=== PATIENT | male | born 1955 | race Caucasian/White ===

== ENCOUNTER 2016-08-08 08:07 | Day surgery (SDC) | payer OTHER ==
[~2016-08-08] VITALS: Ht 167.6 cm; Wt 90.3 kg
[~2016-08-08 08:07] MED LIST: ALLO300T2 PO; BENZ100C8 PO; CYCL10TA9 PO; GABA600T2 PO; GUAI120L57 PO; LORA10CA PO; LOSA25TA21 PO; Lactated Ringer's 1,000 ML IV ONE; OMEP20TA24 PO; TAMS0.4C98 PO; VIC5 PO
[2016-08-08] MEDS ORDERED: Propofol 10,000 mCg/mL 20 mL Inj ONE (08:08)
[2016-08-08] MEDS ORDERED: fentaNYL-PF 50 mCg/mL 2 mL Inj ONE (08:08)
[2016-08-08 08:27] VITALS: BP 134/78; PULSE 92; RESP 14; O2SAT 96
--- NOTE | 2016-08-08 08:40 | PCM.HPANE ---
Patient Data Date of Service: Aug 08, 2016 (0845) Surgeon Admitting Provider: Attending Provider:Tyrese Anders MD Primary Care Physician:Eitan Granda MD Other Provider:Joel Brizuela Anesthesia Reason for Visit Abnomral Liver Function Test Ht/WT & BMI Height (Feet): 5 Height (Inches): 6 Weight (Kilograms): 90.26 Body Mass Index 31.00 Allergies Coded Allergies: OSMEL Inhibitors (Verified Adverse Reaction, Mild, cough, 08/06/16) Past Anesthesia History Anesthesia History: Denies:: Anesthesia Reactions, Fam Anesthesia Reaction, Fam Malignant Hypertherm, Malignant Hyperthermia Diabetes History Hx Diabetes?: No MRSA MRSA: No Medications Reported Medications Tamsulosin (Flomax)0.4 Mg Capsule0.8 Mg PO DAILY Ref 0 08/06/16 Omeprazole Magnesium (Prilosec Otc)20 Mg Tablet.dr20 Mg PO DAILY #1 PKG Ref 0 08/06/16 Losartan Potassium 25 Mg Eacxpt31 Mg PO DAILY 08/06/16 Loratadine (Claritin)10 Mg Fwbwqta08 Mg PO DAILY Ref 0 08/06/16 Gabapentin 600 Mg Ohzzys554 Mg PO TID Ref 0 08/06/16 Cyclobenzaprine 10 Mg Hskuwr05 Mg PO HS PRN Spasm Ref 0 08/06/16 Benzonatate 100 Mg Bbvbvrk606 Mg PO TID 08/06/16 Allopurinol 300 Mg Cjsjhc977 Mg PO DAILY Ref 0 08/06/16 Hydrocod/APAP-Expunged, Do Not Renew! (Vicodin-Expunged Drug, Do Not Renew)1 Tab Tab1 Tab PO PRN Ref 0 08/02/08 Discontinued Reported Medications Guaifenesin/Codeine Phosphate (Codeine-Guaifen 10-100 mg/5 ml)120 Ml Wunxwf81 Ml PO 08/06/16 History HEENT History: Denies:: Hearing Problem Teeth Condition: Missing Teeth Hx of Heart Problems?: Yes Cardiovascular History: Positive for:: Hypertension Hx of Respiratory Problem?: No Neurological History: Denies:: CVA Hx of GI Problems?: Yes Gastrointestinal History: Positive for:: Liver Disease (Abnormal liver tests) Other GI Pertinent History: kidney stones Musculoskeletal History: Positive for:: Joint Replacement (rt hip) Psycho Social History: Positive for:: Hx Depression Hx Surgeries?: Yes (hip replacement rt,catatact bilatateral, kidney stones) Hx Any Other Health Problems?: Yes Hx Diabetes: No Hx Alcohol Use: YesHx Substance Use: NoHave You Smoked inLast 12 mo: No Stop/Bang Treated for Sleep Apnea?: No Do You Have a CPAP Machine?: No S-Snoring: Do You Snore Loudly: Yes T-Tired: feel tired, fatigued: No O-Obsered: Observed not breath: Yes P-Blood Pressure: treated: Yes B- Body Mass Index > 35 kg/m2: No A- Age over 50: Yes N- Neck Large Circumference: No G- Gender Male: Yes ADAM Total Score: 5 ADAM Risk Assessment: High Risk, =/>3 Yes Risk Assessment Category Category 1A: Patient has history of documented sleep apnea, and HAS NOT received any narcotic, sedative or anesthesia administration during this stay. Category 1B: Patient has history of documented sleep apnea, and HAS received any narcotic , sedative or anesthesia administration during this stay Category 2: Patient has SUSPECTED Obstructive Sleep Apnea, and HAS received any narcotic , sedative or anesthesia administration during this stay. Category 3: Patient has SUSPECTED Obstructive Sleep Apnea and HAS NOT received narcotic, sedative or anesthesia administration during this stay. Category 4: Outpatient in Procedural Areas with known sleep apnea or who screen positive for High Risk via the STOP/BANG questionnaire. Exam Exam Vital Signs Vital Signs Date Time Temp Pulse Resp B/P Pulse Ox O2 Delivery O2 Flow Rate FiO2 08/08/16 08:27 37.1 92 14 134/78 96 Room Air General Appearance: Alert, Oriented X3, Cooperative HEENT/AIRWAY: MP 1 Lungs: Clear to Auscultation Heart: Exam Unremarkable Meds/Labs/Diagnostics Admission Meds Current Medications Lactated Ringer's (Lr) 1,000 ml @ 10 mls/hr Q24H ONCE IV Last administered on 08/08/16t 08:30; Start 08/08/16 at 06:00; Stop 08/09/16 at 05:59 Plan Impression Patient chart reviewed, patient interviewed and anesthestic plan with risks, benefits, and alternatives discussed, and informed consent obtained. NPO Status: >8HRS ASA Physical Status: ASA2 Mod Systemic Disease Anesthetic Plan: GA Bene/Risks/Altern/Consents: Yes HP Complete Prior to Induction: Yes Owen Lane MD Aug 08, 2016 08:40
[2016-08-08] MEDS ORDERED: Lactated Ringer's 1,000 ML IV SCH (08:41)
[2016-08-08] MEDS ORDERED: MetoCLOpramide 5 mg/mL 2 mL Inj IVPUSH PRN (08:45)
[2016-08-08] MEDS ORDERED: Ondansetron 2 mg/mL 2 mL Inj IVPUSH PRN (08:45)
--- NOTE | 2016-08-08 08:58 | PCM.ENDEGD ---
EGD Date of Service: Aug 08, 2016 Physician Tyrese Anders MD Pre Procedure Diagnosis: Varices screening Post Procedure Dx & Findings: esophageal varices portal hypertensive gastropathy Procedure Esophagogastroduodenoscopy PROCEDURE IN DETAIL: After proper sedation, Olympus video endoscope was inserted into patient's mouth and esophagus was successfully intubated. Scope introduced esophagus. Esophagus showed normal shiny whitish mucosa consistent with squamous cell component. Z line was intact at 40 cm cm from the incisors. However starting in the midesophagus, we started seeing esophageal varices. It went to the Z line. At the Z line, there were 4 columns of grade 2 and one column of grade 1 varices. No stigmata noted. Scope advanced further to the stomach. There was also evidence of snakeskin pattern mucosa from cardia fundus body consistent with portal hypertensive gastropathy. Stomach showed normal shiny mucosa with normal appearing rugae folds without any ulcer mass erosion. Cardia fundus body antrum pylorus were all visualized. Retroflexion was done. Stomach was easily inflated and deflatable using air. Scope further events to the distal duodenum. Duodenum revealed normal villous structures with normal appearing folds without any mass ulcer erosion. Impression Esophagus varices Portal hypertensive gastropathy Recommendation Start propranolol. He was informed to not to take it if pulse less than 55 systolic blood pressure less than 90 or starts having dizziness or lightheadedness. Presedation Assessment Risks and Benefits Informed consent was obtained from the patient after all risks and benefits including but not limited to drug reaction, infection, pain, bleeding, perforation, as well as alternatives were discussed. Patient monitoring Continuous pulse oximetry, cardiac monitoring, blood pressure monitoring, IV access, and oxygen at 2L per nasal cannula. Complications There were no periprocedural complications identified. Post Procedure Plan Post Procedure Recommendations 1. Restrict activities today. 2. Resume normal activities in the morning. 3. Resume medications. 4. GERD behavioral modification: - Avoid fatty, acidic, spicy, large meals - Do not lie down after meals - Do not eat or drink anything for at least 2 1/2 hours before going to bed at night - Discontinue tobacco and alcohol - Decrease or avoid caffeine - Avoid chocolate and mints - Decrease weight - Avoid aspirin and non steroidal anti-inflammatory agents (NSAID) such as Aleve, Advil, Mobic, Naproxen, Ibuprofen, etc 5. Add proton pump inhibitor. Take 30 minutes before 1st meal of the day. 6. Patient informed of normal post procedure side effects as bloating, drowsiness, blood streaking in the stool 7. If gastric biopsy reveal H.pylori, continue with appropriate treatment 8. If small bowel biopsy reveals celiac, continue with appropriate treatment 9. Please don't hesitate to call me with any questions Tyrese Anders MD Aug 08, 2016 08:58
[2016-08-08 09:17] VITALS: BP 106/67; PULSE 84; RESP 14; O2SAT 91
--- NOTE | 2016-08-08 09:18 | PCM.ENDCOL ---
Colonoscopy Date of Service: Aug 08, 2016 Physician Tyrese Anders MD Pre Procedure Diagnosis: Screening Post Procedure Dx & Findings: Polyp diverticuli and hemorrhoids Procedure Colonoscopy PROCEDURE IN DETAIL: Prep adequate Withdrawal time 13 minutes After unremarkable rectal examination the Olympus video colonoscope was inserted patient's anal canal and was advanced to cecum. Landmarks were identified including the ileocecal valve and appendiceal orifice. Scope was withdrawn systematically. Visualized colonic mucosa showed healthy shiny mucosa with normal healthy-appearing vasculature. In the cecum extending into the ileocecal valve, there was a 2 cm x 4 cm large polyp. Biopsy obtained. In the transverse colon, there were total of 3 polyps. These were 2-3 mm in size which were all removed completely using cold snare. In the ascending colon, there was a 1 cm AVM. No bleeding noted. In the sigmoid colon, there were several small to medium diverticula. In the rectum retroflexion was done which showed hemorrhoids. Anal canal was inspected carefully on the way out and hemorrhoids noted. There was also a column of rectal varices. Impression Polyp 2 x 4 cm. Was not resected. Patient has portal hypertensive gastropathy esophageal varices rectal varices and platelets. Polyp 3 status post complete removal Diverticuli Hemorrhoids Recommendation Please go to the [facility] for high risk polypectomy. Diverticular diet Follow up in GI clinic in couple months. Presedation Assessment Risks and Benefits Informed consent was obtained from the patient after all risks and benefits including but not limited to drug reaction, infection, pain, bleeding, perforation, as well as alternatives were discussed. Patient monitoring Continuous pulse oximetry, cardiac monitoring, blood pressure monitoring, IV access, and oxygen at 2L per nasal cannula. Complications There were no periprocedural complications identified. Post Procedure Plan Post Procedure Recommendations 1. Restrict activities today. 2. Resume normal activities in the morning. 3. Resume medications. 4. Patient informed of normal post procedure side effects as bloating, drowsiness, blood streaking in the stool. 5. average risk CRCS. If colon polyps come back as: -Hyperplastic- can repeat colonoscopy in 10 years -Tubular adenoma- repeat colonoscopy in 5 years -Tubulovillous/villous adenoma- repeat colonoscopy in 3 years -If any dysplasia- return to clinic as soon as possible 6. Please don't hesitate to call me with any questions. Tyrese Anders MD Aug 08, 2016 09:18
--- NOTE | 2016-08-08 09:19 | PCM.ANEP1 ---
Post Anesthesia Phase 1 PACU Phase 1 Assessment Date of Service: Aug 08, 2016 Vital Signs 93%, 16, 85, 36.5, 106/69 Vital Signs Date Time Temp Pulse Resp B/P Pulse Ox O2 Delivery O2 Flow Rate FiO2 08/08/16 08:27 37.1 92 14 134/78 96 Room Air Anesthetic Administered: GA Level of Alertness: Awake, talking PAEZ's with Equal Strength: Yes Pain: No Nausea or Vomiting: No Oxygen Delivery: Room Air Lungs: Clear to Auscultation Dermatome Level: Full Sensation Summary uneventful sedation Owen Lane MD Aug 08, 2016 09:19
--- NOTE | 2016-08-08 09:19 | PCM.ANEP2 ---
Post Anesthesia Evaluation ASA/CMS Post Anesthesia VS in Patient's Normal Range?: Yes Resp Stable; Airway Patent?: Yes CV Function & Hydration Stable: Yes Mental Status Recovered?: Yes Pain control Satisfactory?: Yes N/V Control Satisfactory?: Yes Owen Lane MD Aug 08, 2016 09:19
[2016-08-08 09:27] VITALS: BP 144/78; PULSE 84; RESP 16; O2SAT 94
[2016-08-08 09:37] VITALS: BP 151/76; PULSE 89; RESP 16; O2SAT 93
[2016-08-08 09:47] VITALS: BP 155/75; PULSE 84; RESP 16; O2SAT 98
--- NOTE | 2016-08-09 11:43 | PATH ---
SURGICAL PATHOLOGY Attending Physician:Tyrese Anders M.D. CASE STATUS: Signed Out PATIENT NAME: WILMAR RIVERA PID: [id number] : 1955 DATE COLLECTED:08/08/2016 17:48 SPECIMEN: 1: Colon, Biopsy 2: Colon, Biopsy CLINICAL HISTORY: ABNORMAL LIVER TESTS 1). CECAL POLYP BIOPSY 2). TRANSVERSE COLON POLYPS X2 FINAL DIAGNOSIS: 1.CECAL POLYP BIOPSY: TUBULAR ADENOMA. 2.TRANSVERSE COLON POLYPS: TUBULAR ADENOMA INVOLVING SINGLE BIOPSY FRAGMENT. SESSILE SERRATED ADENOMA INVOLVING TWO BIOPSY FRAGMENTS. ICD10 CODE D12.0 GROSS DESCRIPTION: The specimen is received in two formalin filled containers labeled with the patient's name. 1). The specimen is sublabeled "cecal polyp" and consists of a 0.3 x 0.2 x 0.2 CM portion of tissue which is entirely submitted in cassette 1A. 2). The specimen is sublabeled "transverse colon polyps" and consists of 3 portions of tissue which aggregate to 0.4 x 0.3 x 0.3 CM. The specimen is entirely submitted in cassette 2A. 08/08/2016 [facility] MICRO DESCRIPTION: See diagnosis. ICD-9 CODES: CPT CODES: 1: 49065 2: 59571 Electronically Signed Out Bret Baker MD [facility] [address], [place] [address] Technical component performed at [facility], [address] [place] [address] Ave[address], [place], [address]
== END 2016-08-08 23:59 | disposition home or self-care (01) ==
LOC: END 08:07
PROVIDERS: ATTEND Internal Medicine
DX: Z12.11 Encounter for screening for malignant neoplasm of colon (principal); D12.0 Benign neoplasm of cecum; D12.3 Benign neoplasm of transverse colon; K57.30 Diverticulosis of large intestine without perforation or abscess without bleeding; K64.8 Other hemorrhoids; K76.6 Portal hypertension; K31.89 Other diseases of stomach and duodenum; I85.10 Secondary esophageal varices without bleeding; N40.1 Benign prostatic hyperplasia with lower urinary tract symptoms; R39.15 Urgency of urination; R35.0 Frequency of micturition; R33.9 Retention of urine, unspecified; I10 Essential (primary) hypertension; F32.9 Major depressive disorder, single episode, unspecified

== ENCOUNTER → 2016-11-01 | Day surgery (SDC) | payer OTHER ==
--- NOTE | 2016-10-31 13:22 | PCM.HPANE ---
Patient Data Surgeon Admitting Provider: Attending Provider:Tyrese Anders MD Primary Care Physician:Eitan Granda MD Other Provider:[facility] Anesthesia Reason for Visit Cirrhosis Of Liver W/Ascites Ht/WT & BMI Body Mass Index Allergies Coded Allergies: OSMEL Inhibitors (Verified Adverse Reaction, Mild, cough, 08/06/16) Past Anesthesia History Anesthesia History: Denies:: Abnormal Airway, Anesthesia Reactions, Difficult Intubation, Fam Anesthesia Reaction, Fam Malignant Hypertherm, Malignant Hyperthermia Diabetes History Hx Diabetes?: No MRSA MRSA: No Medications Reported Medications Tamsulosin (Flomax)0.4 Mg Capsule0.4 Mg PO DAILY Ref 0 10/31/16 Sertraline HCl (Sertraline)25 Mg Ngwbls74 Mg PO DAILY 30 Days Ref 0 10/31/16 Omeprazole Magnesium (Prilosec Otc)20 Mg Tablet.dr20 Mg PO DAILY #1 PKG Ref 0 10/31/16 Losartan Potassium 25 Mg Rbgjih99 Mg PO DAILY 10/31/16 Ferrous Sulfate (Iron)325 Mg Capsule.er325 Mg PO DAILY 10/31/16 Gabapentin 600 Mg Zvqrwl722 Mg PO TID Ref 0 10/31/16 Cyclobenzaprine 10 Mg Cuouht96 Mg PO BID PRN Spasm 10/31/16 Benzonatate 100 Mg Rgqxmgj008 Mg PO TID 10/31/16 Allopurinol 300 Mg Fqwkat823 Mg PO DAILY Ref 0 10/31/16 Discontinued Reported Medications Loratadine 10 Mg Dwsdrmk66 Mg PO DAILY 10/31/16 Guaifenesin/Codeine Phosphate (Codeine-Guaifen 10-100 mg/5 ml)120 Ml Ajnmof979 Ml PO 10/31/16 Tamsulosin (Flomax)0.4 Mg Capsule0.8 Mg PO DAILY Ref 0 08/06/16 Omeprazole Magnesium (Prilosec Otc)20 Mg Tablet.dr20 Mg PO DAILY #1 PKG Ref 0 08/06/16 Losartan Potassium 25 Mg Zcthob39 Mg PO DAILY 08/06/16 Loratadine (Claritin)10 Mg Lnmypua23 Mg PO DAILY Ref 0 08/06/16 Gabapentin 600 Mg Plbmmz466 Mg PO TID Ref 0 08/06/16 Cyclobenzaprine 10 Mg Cmopuw38 Mg PO HS PRN Spasm Ref 0 08/06/16 Benzonatate 100 Mg Nztvrfh162 Mg PO TID 08/06/16 Allopurinol 300 Mg Prtmpr098 Mg PO DAILY Ref 0 08/06/16 Hydrocod/APAP-Expunged, Do Not Renew! (Vicodin-Expunged Drug, Do Not Renew)1 Tab Tab1 Tab PO PRN Ref 0 08/02/08 History History of ENT Problems?: No HEENT History: Denies:: Abnormal Airway Cataracts Difficult Intubation Dysphagia Glaucoma Hearing Problem Sinus Problem TMJ Denture Type: None Teeth Condition: Within Normal Limits Hx of Heart Problems?: Yes Cardiovascular History: Positive for:: Hypertension Denies:: AICD Abdominal Aortic Aneurism Atrial Fibrillation Cardiac Surgery Chest Pain Congestive Heart Failure Coronary Artery Disease Edema Heart Murmur Irregular Heartbeat Pacemaker Peripheral Vascular Rheumatic Fever Thrombophlebitis Valvular Heart Disease Hx of Respiratory Problem?: No Respiratory History: Denies:: Asthma COPD Chest Surgery Cough Dyspnea Emphysema Hemoptysis Oxygen Administration Pneumonia Pulmonary Embolism Tuberculosis Use of C-PAP Machine Use of Inhalers / NEBS Hx Neurologic Problems?: No Neurological History: Denies:: Alzheimer's Disease CVA Dementia Dizziness Headaches Multiple Sclerosis Parkinson's Disease Peripheral Neuropathy Seizures TIA Hx of GI Problems?: Yes Gastrointestinal History: Denies:: Cirrhosis Diverticulitis Gall Bladder Disease Gastroesphageal Reflux Gastrointestinal Bleeding Heartburn Hepatitis Hiatal Hernia Liver Disease Rectal Bleeding Hx of Problems?: No Genitourinary History: Denies:: HX of Hemodialysis Kidney Stones Urinary Tract Infection Male Hx: Denies:: Prostate Problems Scrotal Mass Testicular Surgery Skin History: Denies:: History Skin Disorders? Pressure Ulcers Hx Musculoskeletal Problems?: Yes Musculoskeletal History: Positive for:: Joint Replacement (rt hip) Denies:: Back Injury Degenerative Joint Fibromyalgia Musculoskeletal Trauma Myasthenia Gravis Osteoarthritis Rheumatoid Arthritis Systemic Lupus Hx of Psycho/Social Problems?: Yes Psycho Social History: Positive for:: Hx Depression Denies:: Anxiety Bipolar Disorder Suicide Attempt Hx Surgeries?: Yes (hip replacement rt,catatact bilatateral, kidney stones) Hx Any Other Health Problems?: Yes Other History: Denies:: Cancer Endocrine Disease Hospitalization Thyroid Disease History Blood Transfusions: Denies:: Accept Blood Products? Blood Transfuse Reaction Blood Transfusions Hx Diabetes: No Hx Alcohol Use: YesHx Substance Use: NoHave You Smoked inLast 12 mo: No Stop/Bang Risk Assessment Category Category 1A: Patient has history of documented sleep apnea, and HAS NOT received any narcotic, sedative or anesthesia administration during this stay. Category 1B: Patient has history of documented sleep apnea, and HAS received any narcotic , sedative or anesthesia administration during this stay Category 2: Patient has SUSPECTED Obstructive Sleep Apnea, and HAS received any narcotic , sedative or anesthesia administration during this stay. Category 3: Patient has SUSPECTED Obstructive Sleep Apnea and HAS NOT received narcotic, sedative or anesthesia administration during this stay. Category 4: Outpatient in Procedural Areas with known sleep apnea or who screen positive for High Risk via the STOP/BANG questionnaire. Exam Exam General Appearance: Alert, Oriented X3, Cooperative, Moderate Distress HEENT/AIRWAY: MP 2 Lungs: Clear to Auscultation Heart: Exam Unremarkable Plan Impression Patient chart reviewed, patient interviewed and anesthestic plan with risks, benefits, and alternatives discussed, and informed consent obtained. ASA Physical Status: ASA2 Mod Systemic Disease Anesthetic Plan: MAC Bene/Risks/Altern/Consents: Yes HP Complete Prior to Induction: Yes Ari Olivera MD Oct 31, 2016 13:22
[~2016-11-01] VITALS: Ht 167.6 cm; Wt 88.0 kg
[~2016-11-01] MED LIST changes: +FERR325C PO; -LORA10CA PO; +LORA10CA9 PO; +Lactated Ringer's 1,000 ML IV SCH; +MetoCLOpramide 5 mg/mL 2 mL Inj IVPUSH PRN; +Ondansetron 2 mg/mL 2 mL Inj IVPUSH PRN; +Propofol 10,000 mCg/mL 20 mL Inj ONE; +SERT25TA6 PO; -VIC5 PO; +fentaNYL-PF 50 mCg/mL 2 mL Inj ONE
[2016-11-01 09:40] VITALS: BP 148/72; PULSE 75; RESP 16; O2SAT 98
[2016-11-01 10:18] VITALS: BP 142/81; PULSE 80; RESP 17; O2SAT 93
--- NOTE | 2016-11-01 10:22 | PCM.ENDEGD ---
EGD Date of Service: Nov 01, 2016 Physician Tyrese Anders MD Pre Procedure Diagnosis: esophageal varix Post Procedure Dx & Findings: grade 1 esophageal varix. Procedure Esophagogastroduodenoscopy PROCEDURE IN DETAIL: After proper sedation, Olympus video endoscope was inserted into patient's mouth and esophagus was successfully intubated. Scope introduced esophagus. Esophagus showed normal shiny whitish mucosa consistent with squamous cell component. Z line was at 45 cm from the incisors. There were 3 columns of esophageal varices. On insufflation they all flattened out. Grade 1 varices of 3 columns. No stigmata noted. Scope further advanced to the stomach. Gastric mucosa showed portal hypertensive gastropathy moderate. Antrum showed significant inflammation and redness consistent with gastritis. Biopsies obtained. Cardia fundus body antrum pylorus were all visualized. Retroflexion was done. Stomach was easily inflated and deflatable using air. Scope further advanced to the distal duodenum. Duodenum revealed normal villous structures with normal appearing folds without any mass ulcer erosion. Impression Gastritis Grade 1 varices Portal hypertension Recommendation Prilosec 20 mg once a day EGD with anesthesia in 6 months to see if there is progression of the varices. Presedation Assessment Risks and Benefits Informed consent was obtained from the patient after all risks and benefits including but not limited to drug reaction, infection, pain, bleeding, perforation, as well as alternatives were discussed. Patient monitoring Continuous pulse oximetry, cardiac monitoring, blood pressure monitoring, IV access, and oxygen at 2L per nasal cannula. Complications There were no periprocedural complications identified. Post Procedure Plan Post Procedure Recommendations 1. Restrict activities today. 2. Resume normal activities in the morning. 3. Resume medications. 4. GERD behavioral modification: - Avoid fatty, acidic, spicy, large meals - Do not lie down after meals - Do not eat or drink anything for at least 2 1/2 hours before going to bed at night - Discontinue tobacco and alcohol - Decrease or avoid caffeine - Avoid chocolate and mints - Decrease weight - Avoid aspirin and non steroidal anti-inflammatory agents (NSAID) such as Aleve, Advil, Mobic, Naproxen, Ibuprofen, etc 5. Add proton pump inhibitor. Take 30 minutes before 1st meal of the day. 6. Patient informed of normal post procedure side effects as bloating, drowsiness, blood streaking in the stool 7. If gastric biopsy reveal H.pylori, continue with appropriate treatment 8. If small bowel biopsy reveals celiac, continue with appropriate treatment 9. Please don't hesitate to call me with any questions Tyrese Anders MD Nov 01, 2016 10:22
[2016-11-01 10:30] VITALS: BP 150/73; PULSE 77; RESP 15; O2SAT 92
--- NOTE | 2016-11-01 10:31 | PCM.ANEP1 ---
Post Anesthesia PACU Phase 1 Assessment Vital Signs Vital Signs Date Time Temp Pulse Resp B/P Pulse Ox O2 Delivery O2 Flow Rate FiO2 11/01/16 10:18 80 17 142/81 93 Room Air 11/01/16 09:40 37.2 75 16 148/72 98 Room Air Anesthetic Administered: GA Level of Alertness: Awake, talking PAEZ's with Equal Strength: Yes Pain: No Nausea or Vomiting: No CV Function & Hydration Stable: Yes Airway Device: Oxygen Delivery: Room Air Lungs: Normal Air Movement PACU Phase 2 Assessment Complications: No Follow up Care: No Patient Instructions Provided: N/A Ari Olivera MD Nov 01, 2016 10:31
[2016-11-01 10:40] VITALS: BP 171/92; PULSE 83; RESP 17; O2SAT 94
--- NOTE | 2016-11-07 09:31 | PATH ---
SURGICAL PATHOLOGY Attending Physician:Tyrese Anders M.D. CASE STATUS: Signed Out PATIENT NAME: WILMAR RIVERA PID: [id number] : 1955 DATE COLLECTED:11/01/2016 17:24 SPECIMEN: Gastric, Biopsy CLINICAL HISTORY: 1). GASTRIC BIOPSY FINAL DIAGNOSIS: 1.GASTRIC BIOPSY: REACTIVE GASTROPATHY, ANTRAL MUCOSA. Negative for Helicobacter organisms. Negative for intestinal metaplasia. Negative for dysplasia and malignancy. [id number] GROSS DESCRIPTION: Received one formalin-filled container, labeled with the patient' s name and labeled "gastric". The specimen consists of two portions of tissue which aggregate to 0.3 x 0.2 x 0.2 cm. The specimen is entirely submitted in one cassette. (DC:[id number]) MICRO DESCRIPTION: See diagnosis. ICD-9 CODES: CPT CODES: 1: 83585 Electronically Signed Out Kat Evans MD [facility] [address], [place] [address] Technical component performed at [facility], [facility] [address], [place], [address]
== END | disposition home or self-care (01) ==
LOC: END 00:28
PROVIDERS: ATTEND Internal Medicine
DX: I85.00 Esophageal varices without bleeding (principal); K31.89 Other diseases of stomach and duodenum; K29.70 Gastritis, unspecified, without bleeding; K76.6 Portal hypertension; K74.60 Unspecified cirrhosis of liver; I10 Essential (primary) hypertension; N40.1 Benign prostatic hyperplasia with lower urinary tract symptoms; R35.0 Frequency of micturition; R39.14 Feeling of incomplete bladder emptying; R39.15 Urgency of urination; M48.06 Spinal stenosis, lumbar region; F32.9 Major depressive disorder, single episode, unspecified; M19.90 Unspecified osteoarthritis, unspecified site; Z87.442 Personal history of urinary calculi; Z86.010 Personal history of colon polyps; Z96.641 Presence of right artificial hip joint
CPT/HCPCS: 43239; 88305; J2250; J3010; J7120